=== PATIENT | female | born 1950 | race Caucasian/White ===

== ENCOUNTER 2018-09-26 11:10 | Observation (INO) | payer OTHER, MEDICARE ==
[~2018-09-26 11:10] MED LIST: BACITRACIN 50,000 UNITS/10 ML SYR IRR ONE; BUPIVACAINE/EPI 0.5% 30 ML SDV ONE; CALCIUM CHLORIDE 1 GM/10 ML INJ ONE; POLYMYXIN B SULFATE 500,000 UNIT/10 ML SYR IRR ONE; ROPIVACAINE 0.2% 80 MG, EPINEPHrine 0.2 MG, KETOROLAC TROMETHAMINE 30 MG, morphINE 10 M... IU ONE; THROMBIN (BOVINE) 5,000 UNIT VIAL TP ONE; TRANEXAMIC ACID 3,000 MG in NS (SYRINGE) 50 ML IRR ONE
[2018-09-26] MEDS ORDERED: ceFAZolin 2 GM/DEXTROSE 100 ML IV ONE (11:39)
[2018-09-26] MEDS ORDERED: LR 1,000 ML IV SCH ×2 (11:39→15:00)
[2018-09-26] MEDS ORDERED: MIDAZOLAM 2 MG/2 ML VIAL IVP ONE (12:14)
[2018-09-26] MEDS ORDERED: TRANEXAMIC ACID 3,000 MG/50 ML BAG IRR ONE (12:45)
[2018-09-26] MEDS ORDERED: PROPOFOL/EMULSION 500 MG/50 ML BOTTLE IV ONE (12:58)
[2018-09-26] MEDS ORDERED: fentaNYL 100 MCG/2 ML INJ IVP PRN (14:30)
[2018-09-26] MEDS ORDERED: ONDANSETRON 4 MG/2 ML VIAL IVP PRN ×2 (14:30→14:32)
[2018-09-26] MEDS ORDERED: NALOXONE HCL 0.4 MG/ML INJ IVP PRN (14:30)
[2018-09-26] MEDS ORDERED: PROMETHAZINE HCL 25 MG/ML INJ IVP PRN ×2 (14:30→14:32)
[2018-09-26] MEDS ORDERED: ONDANSETRON DISINTEGRATING 4 MG TAB PO PRN (14:32)
[2018-09-26] MEDS ORDERED: LACTULOSE 20 GM/30 ML UDCUP PO PRN (14:32)
[2018-09-26] MEDS ORDERED: oxyCODONE IR 5 MG TAB PO PRN (14:32)
[2018-09-26] MEDS ORDERED: POLYETHYLENE GLYCOL 3350 17 GM PKT PO PRN (14:32)
[2018-09-26] MEDS ORDERED: MAGNESIUM HYDROXIDE 30 ML UDCUP PO PRN (14:32)
[2018-09-26] MEDS ORDERED: METOCLOPRAMIDE 10 MG/2 ML VIAL IVP PRN (14:32)
[2018-09-26] MEDS ORDERED: TEMAZEPAM 15 MG CAP PO PRN (14:32)
[2018-09-26] MEDS ORDERED: CYCLOBENZAPRINE 10 MG TAB PO PRN (14:32)
[2018-09-26] MEDS ORDERED: BISACODYL 10 MG SUPP PR PRN (14:32)
[2018-09-26] MEDS ORDERED: DIPHENOXYLATE/ATROPINE LOMOTIL 1 TAB PO PRN (14:32)
[2018-09-26] MEDS ORDERED: PROMETHAZINE HCL 25 MG SUPPR PR PRN (14:32)
[2018-09-26] MEDS ORDERED: TAPENTADOL HCL 50 MG TAB PO PRN (14:32)
[2018-09-26] MEDS ORDERED: diphenhydrAMINE 25 MG CAP PO PRN (14:32)
[2018-09-26] MEDS: traMADol 50 MG TAB PO SCH ×2 (17:46→23:42)
[2018-09-26] MEDS: KETOROLAC 15 MG/1 ML SDV IVP SCH ×2 (17:47→23:43)
[2018-09-26] MEDS: ACETAMINOPHEN 325 MG TAB PO SCH (19:47)
[2018-09-26] MEDS ORDERED: EZETIMIBE 10 MG TAB PO SCH (21:00)
[2018-09-26] MEDS ORDERED: ZOLPIDEM TARTRATE 5 MG TAB PO SCH (21:00)
[2018-09-26] MEDS: FAMOTIDINE 20 MG TAB PO SCH (21:08)
[2018-09-26] MEDS: ceFAZolin 2 GM/DEXTROSE 100 ML IV SCH (21:08)
[2018-09-26] MEDS: SENNOSIDES/DOCUSATE SODIUM TAB PO SCH (21:08)
[2018-09-27] MEDS: ACETAMINOPHEN 325 MG TAB PO SCH ×2 (02:36→07:48)
[2018-09-27] MEDS: ceFAZolin 2 GM/DEXTROSE 100 ML IV SCH (04:47)
[2018-09-27] MEDS: traMADol 50 MG TAB PO SCH ×2 (05:40→10:59)
[2018-09-27] MEDS: KETOROLAC 15 MG/1 ML SDV IVP SCH (05:41)
[2018-09-27] MEDS: FAMOTIDINE 20 MG TAB PO SCH (07:48)
[2018-09-27] MEDS: SENNOSIDES/DOCUSATE SODIUM TAB PO SCH (07:49)
[2018-09-27] MEDS ORDERED: RIVAROXABAN 10 MG TAB PO SCH (09:00)
[2018-09-27] MEDS ORDERED: ATORVASTATIN CALCIUM 10 MG TAB PO SCH (21:00)
== END 2018-09-27 11:23 | disposition home health service (06) ==
DX: M17.11 Unilateral primary osteoarthritis, right knee (principal); Z87.891 Personal history of nicotine dependence
CPT/HCPCS: 27447; 73560; 88311; 97116; 97161; 97165; C1776; J0171; J0690; J1885; J2250; J2270; J2704; J2795

== ENCOUNTER → 2018-11-26 | Outpatient (CLI) | payer OTHER, MEDICARE | LOC: FCPNEURO 20:30 ==